=== PATIENT | female | born 1955 | race Caucasian/White ===

== ENCOUNTER 2019-05-24 17:23 | Emergency (ER) | payer MEDICARE ==
--- NOTE | 2019-05-24 18:10 | RADIOLOGY REPORT (SQ) ---
EXAM DESCRIPTION: CHEST SINGLE VIEW COMPLETED DATE/TIME: 05/24/2019 5:46 pm REASON FOR STUDY: fall pain COMPARISON: None. EXAM PARAMETERS: NUMBER OF VIEWS: One view. TECHNIQUE: Single frontal radiographic view of the chest acquired. RADIATION DOSE: NA LIMITATIONS: None. FINDINGS: LUNGS AND PLEURA: No opacities, masses or pneumothorax. No pleural effusion. MEDIASTINUM AND HILAR STRUCTURES: No masses. Contour normal. HEART AND VASCULAR STRUCTURES: Heart normal in size. Normal vasculature. BONES: No acute findings. HARDWARE: None in the chest. OTHER: No other significant finding. IMPRESSION: No acute abnormality of the lungs in frontal projection. TECHNICAL DOCUMENTATION: JOB ID: [id number] [employer]- All Rights Reserved Reading location - IP/workstation name: [email or web address]
--- NOTE | 2019-05-24 18:11 | RADIOLOGY REPORT (SQ) ---
EXAM DESCRIPTION: WRIST LEFT 3 VIEWS COMPLETED DATE/TIME: 05/24/2019 5:46 pm REASON FOR STUDY: fall pain COMPARISON: None. NUMBER OF VIEWS: Three views. TECHNIQUE: AP, lateral, and oblique radiographic images acquired of the left wrist. LIMITATIONS: None. FINDINGS: MINERALIZATION: Osteopenia. BONES: There is a nondisplaced, transverse fracture of the left scaphoid waist. No worrisome bone le sions. Normal alignment. SOFT TISSUES: No soft tissue swelling. No foreign body. OTHER: No other significant finding. IMPRESSION: There is a nondisplaced, transverse fracture of the left scaphoid waist. TECHNICAL DOCUMENTATION: JOB ID: [id number] [employer]- All Rights Reserved Reading location - IP/workstation name: [email or web address]
--- NOTE | 2019-05-24 18:33 | ER Document Report ---
ED General - General Chief Complaint: Fall Stated Complaint: BACK PAIN Time Seen by Provider: 05/24/19 17:27 Notes: Patient presents with left wrist and hand pain as well as low back pain after a fall. She tumbled backwards while tripping of her own feet broke her fall with her left wrist did not hit her head lost consciousness. No shortness of breath or chest pain. Brought in by EMS. GCS 15 normal vitals no blood thinners. Denies other acute pain or trauma. [id number]. TRAVEL OUTSIDE OF THE [place] IN LAST 30 DAYS: No - Related Data Allergies/Adverse Reactions: Penicillins Allergy (Verified 05/24/19 18:36) Sulfa (Sulfonamide Antibiotics) Allergy (Verified 05/24/19 18:36) Past Medical History - Social History Smoking Status: Never Smoker Chew tobacco use (# tins/day): No Frequency of alcohol use: None Family History: None Patient has suicidal ideation: No Patient has homicidal ideation: No - Past Medical History Cardiac Medical History: Reports: Hx Hypertension Endocrine Medical History: Reports: Hx Diabetes Mellitus Type 2 Review of Systems - Review of Systems Notes: REVIEW OF SYSTEMS GEN: Denies fever, chills, weight loss ENT: Denies sore throat, nasal discharge, ear pain EYES: Denies blurry vision, eye pain, discharge CV: Denies chest pain, palpitations, edema RESP: Denies cough, shortness of breath, wheezing GI: Denies abdominal pain, nausea, vomiting, diarrhea MSK: Left hand and back pain SKIN: Denies rash, skin lesions LYMPH: Denies swollen glands/lymph nodes NEURO: Denies headache, focal weakness or numbness, dizziness PSYCH: Denies depression, suicidal or homicidal ideation PHYSICAL EXAMINATION General: No acute distress, well-nourished Head: Atraumatic, normocephalic ENT: Mouth normal, oropharynx moist, no exudates or tonsillar enlargement Eyes: Conjunctiva normal, pupils equal, lids normal Neck: No JVD, supple, no guarding CVS: Normal rate, regular rhythm, no murmurs Resp: No resp distress, equal and normal breath sounds bilaterally GI: Nondistended, soft, no tenderness to palpation, no rebound or guarding Ext: No deformity. Tender at the distal left radius/proximal hand/snuffbox Back: No CVA or midline TTP. Pain on logrolling. Patch present in the sacral region Skin: No rash, warm Lymphatic: No lymphadeopathy noted Neuro: Awake, alert. Face symmetric. GCS 15. Normal strength and sensation in all 4 tremors. Physical Exam - Vital signs Vitals: Pulse Ox 97 05/24/19 17:36 Course - Re-evaluation Re-evalutation: 05/24/19 18:32 Fall from sitting without head trauma. Isolated left hand wrist trauma with some back soreness but no midline tenderness. Patient had pain on logroll but is neuro intact. No evidence of truncal trauma. No evidence of neck pain or trauma and no blood thinners. Will order lumbar spine CT 05/24/19 21:54 Patient presents with the above injuries. Chest x-ray negative. CT spine shows T12-L1 fracture. Repeat exam still in significant pain with mostly paraspinous tenderness but it is at the same level as her fractures. Is not aware of any old fractures. Her neuro exam on repeat exam shows a normal lower extremity neuro exam. She has a scaphoid fracture which was splinted with a thumb spica. Given her inability to tolerate pain and the fact that he cannot keep her here she was transferred to [facility] for trauma evaluation. Accepted by Dr. Zhu. Pelvic x-ray negative. Pain was well controlled throughout and GCS remained 15. Did not see indication for imaging of the neck or torso other than the spine. - Vital Signs Vital signs: Temp Pulse Resp BP Pulse Ox 97.7 F 74 16 146/62 H 94 05/24/19 21:34 05/24/19 21:34 05/24/19 21:34 05/24/19 21:34 05/24/19 21:34 - Diagnostic Test Radiology reviewed: Image reviewed, Reports reviewed Discharge - Discharge Clinical Impression: Compression fracture of L1 lumbar vertebra Qualifiers: Encounter type: initial encounter Qualified Code(s): S32.010A - Wedge compression fracture of first lumbar vertebra, initial encounter for closed fracture Scaphoid fracture of wrist Qualifiers: Encounter type: initial encounter Scaphoid bone location: middle third Fracture type: closed Fracture alignment: nondisplaced Laterality: left Qualified Code(s): S62.025A - Nondisplaced fracture of middle third of navicular [scaphoid ] bone of left wrist, initial encounter for closed fracture Condition: Good Disposition: [facility]
[2019-05-24] MEDS ORDERED: OXYCODONE-ACETAMINOPHEN 5-325 MG TABLET PO ONE (18:34)
[2019-05-24] MEDS ORDERED: FENTANYL CITRATE INJ/PF 100 MCG/2 ML AMPUL IM ONE (18:47)
--- NOTE | 2019-05-24 18:54 | RADIOLOGY REPORT (SQ) ---
EXAM DESCRIPTION: CT LUMBAR SPINE WITHOUT COMPLETED DATE/TIME: 05/24/2019 6:35 pm REASON FOR STUDY: pain fall COMPARISON: None. TECHNIQUE: Axial images acquired through the lumbar spine without intravenous contrast. Images revi ewed with lung, soft tissue and bone windows. Reconstructed coronal and sagittal MPR images reviewed . All images stored on PACS. All CT scanners at this facility use dose modulation, iterative reconstruction, and/or weight based d osing when appropriate to reduce radiation dose to as low as reasonably achievable (ALARA). [facility]: Dose Right [facility]: CareDose [facility]: Dose Right [facility]: Teradose 4D [facility]: [employer] RADIATION DOSE: mGy. LIMITATIONS: None. FINDINGS: SEGMENTATION: Normal. No transitional anatomy. ALIGNMENT: Normal. VERTEBRAL BODIES: Mild superior endplate compression fracture at T12. Mild superior endplate christiano portillo fracture at L1. DISCS: Mild broad-based disc bulge at L4-5 with narrowing of the right neural foramen. PEDICLES, TRANSVERSE PROCESSES: No fractures. No dislocation. No acute findings. FACETS, POSTERIOR ELEMENTS: No fractures. No dislocation. No spinal stenosis. HARDWARE: None in the spine. VISUALIZED RIBS: No fractures. SOFT TISSUES: No significant or acute finding in adjacent soft tissues. OTHER: No other significant finding. IMPRESSION: 1. Mild superior endplate compression fractures at T12 and at L1. 2. Broad-based disc bulge at L4-5 with mild right foraminal stenosis. TECHNICAL DOCUMENTATION: JOB ID: [id number] Quality ID # [id number]: Final reports with documentation of one or more dose reduction techniques (e.g., Au tomated exposure control, adjustment of the mA and/or kV according to patient size, use of iterative reconstruction technique) 2010 [employer]- All Rights Reserved Reading location - IP/workstation name: [email or web address]
--- NOTE | 2019-05-24 20:20 | RADIOLOGY REPORT (SQ) ---
EXAM DESCRIPTION: XR PELVIS 1-2 VIEWS COMPLETED DATE/TME: 05/24/2019 19:22 CLINICAL HISTORY: 63 years, Female, fall COMPARISON: None. NUMBER OF VIEWS: One TECHNIQUE: Frontal view of the pelvis was obtained LIMITATIONS: None. FINDINGS: Visualized osseous structures are normal in appearance. Joint spaces are well-maintained. No acute fracture or dislocation is evident. Arterial calcinosis. IMPRESSION: No acute osseous anomaly. copyright 2010 [employer]- All Rights Reserved
[2019-05-24 21:35] VITALS: BP 146/62
== END 2019-05-24 21:51 | disposition short-term general hospital (02) ==
LOC: ER 17:23
DX: S32.010A Wedge compression fracture of first lumbar vertebra, initial encounter for closed fracture (principal); S62.025A Nondisplaced fracture of middle third of navicular [scaphoid] bone of left wrist, initial encounter for closed fracture; M79.642 Pain in left hand; M54.5 Low back pain; W01.0XXA Fall on same level from slipping, tripping and stumbling without subsequent striking against object, initial encounter; I10 Essential (primary) hypertension; E11.9 Type 2 diabetes mellitus without complications; Z88.0 Allergy status to penicillin; Z88.2 Allergy status to sulfonamides
CPT/HCPCS: 99285; 96372; 71045; 72170; 73110; 72131; 29125; J3010